=== PATIENT | female | born 1990 | race Caucasian/White ===

== ENCOUNTER 2016-11-25 02:32 | Emergency (ER) | payer MEDICAID ==
[~2016-11-25] VITALS: Ht 154.9 cm; Wt 61.2 kg
[~2016-11-25 02:32] MED LIST: CYMBALTA60 MG ORAL; DEPAKOTE250 MG PO; GABAPENTIN100 MG ORAL; PHENOBARBITAL30 MG ORAL; SEROQUEL200 MG ORAL
[2016-11-25] MEDS ORDERED: GABAPENTIN600 MG ORAL (02:44)
[2016-11-25] MEDS ORDERED: CATAPRES0.1 MG ORAL (02:44)
[2016-11-25] MEDS ORDERED: Norco 5mg/325mg tab ORAL ONE (03:30)
[2016-11-25] MEDS ORDERED: Lidocaine 1% MPF 10mg/ml 5ml ONE (03:40)
[2016-11-25] MEDS ORDERED: Cephalexin 500mg cap ORAL ONE (04:00)
--- NOTE | 2016-11-25 04:23 | Emergency Room Report ---
History of Present Illness General Chief Complaint: Pain Source: Patient Present Illness HPI Patient presents with complaints of right leg swelling Reports that she was recently at [facility] for approximately 10 days Soon after that at [facility] Patient reports having ultrasounds to rule out DVT has been on IV antibiotics Reports leaving [place] last hospital She had continued discomfort in her right leg She reports that she had history of rhabdo Otherwise denies any chest pain returns of breath Denies any back or flank pain Denies any fevers or chills denies any recent fall or trauma however she does report Fractures on the right foot recently as well Allergies: Coded Allergies: KETOROLAC (Verified Allergy, Unknown, 11/25/16) PHENYTOIN (Unverified Allergy, Unknown, 08/13/16) TRAMADOL (Verified Allergy, Unknown, 11/25/16) Patient History Past Medical History: see triage record Pertinent Family History: none Last Menstrual Period: a week ago Now: No Reviewed Nursing Documentation: PMH: Agreed, PSxH: Agreed Nursing Documentation-PMH Past Medical History: No History, Except For Hx Seizures: Yes Review of Systems All Other Systems: negative except mentioned in HPI Physical Exam Vital Signs Date Time Temp Pulse Resp B/P Pulse Ox O2 Delivery O2 Flow Rate FiO2 11/25/16 02:35 97.7 132 16 117/80 95 Room Air Sp02 EP Interpretation: reviewed, normal General Appearance: well appearing, no apparent distress Head: normocephalic, atraumatic Eyes: bilateral eye EOMI, bilateral eye PERRL ENT: hearing grossly normal, normal pharynx, TMs + canals normal, uvula midline Neck: full range of motion, supple, no meningismus, no bony tend Respiratory: lungs clear, normal breath sounds, no rhonchi, no respiratory distress, no retraction, no accessory muscle use Cardiovascular #1: normal peripheral pulses, regular rate, rhythm, no gallop, no JVD, no murmur Gastrointestinal: normal bowel sounds, non tender, soft, no mass, no organomegaly, non-distended, no guarding, no hernia, no pulsatile mass, no rebound Genitourinary: no CVA tenderness Musculoskeletal: swelling - There is obvious swelling and mild erythema the right foot and the lower leg, pulses are intact the leg itself is soft, no signs of any compartment syndrome Neurologic: oriented x3, responsive, wheel cleaner III-XII nml as tested, motor strength/ tone normal, sensory intact Psychiatric: mood/affect normal Skin: other - As noted above Medical Decision Making Diagnostic Impression: Primary Impression: Edema Additional Impression: Cellulitis ER Course Patient has had a fairly extensive outpatient workup including blood work and ultrasonography patient has also had a patient admission and care She reports leaving [place] from [place] recently At this time there is some chronic component to the patient's presentation however clinical exam does reveal swelling and mild erythema to the foot and lower leg as well Patient was initially given IM injection of antibiotics however she refused that and wanted oral medication Patient reports that she is going to a rehabilitation facility tomorrow and will have a primary physician at that facility Given her reports of recent workup I did not feel that repeating this was required in the emergency room Last Vital Signs Date Time Temp Pulse Resp B/P Pulse Ox O2 Delivery O2 Flow Rate FiO2 11/25/16 02:35 97.7 132 16 117/80 95 Room Air Status: improved Disposition: HOME, SELF-CARE Condition: Improved Scripts Acetaminophen (Tylenol) 325 Mg Tablet 650 MG ORAL Q8HR Y for Prn Pain/Headache/Temp > 101, #20 TAB 0 Refills Prov: GREGOR KURTZ D.O. 11/25/16 Cephalexin* (KEFLEX*) 500 Mg Capsule 500 MG ORAL Q6H, #28 CAP 0 Refills Prov: GREGOR KURTZ D.O. 11/25/16 Referrals: Cezar JOHN,REFERRING (PCP) Additional Instructions: Patient is provided with the discharge instructions notified to follow up with primary doctor in the next 2-3 days otherwise return to the er with any worsening symptoms. GREGOR KURTZ D.O. Nov 25, 2016 04:23
[2016-11-25] MEDS ORDERED: TYLENOL325 MG ORAL (04:59)
[2016-11-25] MEDS ORDERED: KEFLEX500 MG ORAL (04:59)
[2016-11-25 06:30] VITALS: BP 120/82
[2016-11-25 06:31] VITALS: BP 117/80
== END 2016-11-25 06:34 | disposition home or self-care (01) ==
LOC: EMR 03:23
DX: R60.9 Edema, unspecified (principal); L03.115 Cellulitis of right lower limb; Z88.6 Allergy status to analgesic agent; Z88.8 Allergy status to other drugs, medicaments and biological substances
CPT/HCPCS: 99283; J0696

== ENCOUNTER 2016-11-25 15:19 | Emergency (ER) | payer MEDICAID ==
[~2016-11-25] VITALS: Ht 162.6 cm; Wt 52.2 kg
[~2016-11-25 15:19] MED LIST changes: +CATAPRES0.1 MG ORAL; +GABAPENTIN600 MG ORAL; +KEFLEX500 MG ORAL; +TYLENOL325 MG ORAL
[2016-11-25 15:50] VITALS: BP 123/82
[2016-11-25] MEDS ORDERED: Norco 5mg/325mg tab ORAL ONE (16:45)
[2016-11-25 16:59] LABS: BASOPHILS % (AUTO) 1.4 % (0.0-2.0); EOSINOPHILS % (AUTO) 2.3 % (0.0-3.0); LYMPHOCYTES % (AUTO) 46.1 % (20.0-45.0); MEAN CORPUSCULAR HEMOGLOBIN 28.1 PG (27.0-31.0); MEAN CORPUSCULAR HGB CONC 31.3 G/DL (32.0-36.0); MEAN CORPUSCULAR VOLUME 90 FL (80-99); MEAN PLATELET VOLUME 4.7 FL (6.5-10.1); MONOCYTES % (AUTO) 9.3 % (1.0-10.0); NEUTROPHILS % (AUTO) 40.9 % (45.0-75.0); PLATELET COUNT 408 K/UL (150-450); RED BLOOD COUNT 3.82 M/UL (4.20-5.40); RED CELL DISTRIBUTION WIDTH 14.1 % (11.6-14.8); WHITE BLOOD COUNT 7.3 K/UL (4.8-10.8)
[2016-11-25 17:10] LABS: INR 1.1 (0.9-1.1); PROTHROMBIN TIME 10.7 SEC (9.30-11.50)
[2016-11-25 17:17] LABS: ALANINE AMINOTRANSFERASE 15 U/L (3-33); ALBUMIN/GLOBULIN RATIO 1.3 (1.0-2.7); ANION GAP 14 (5-15); ASPARTATE AMINO TRANSFERASE 23 U/L (5-40); CARBON DIOXIDE 24 mEQ/L (20-30); CHLORIDE 100 mEQ/L (98-107); CREATININE 0.8 mg/dL (0.5-0.9); GLOMERULAR FILTRATION RATE > 60 mL/min (>60); HEMOLYSIS 3; POTASSIUM 4.3 mEQ/L (3.4-4.9); SODIUM 138 mEQ/L (135-145)
[2016-11-25 18:33] VITALS: BP 121/81
--- NOTE | 2016-11-26 11:37 | Diagnostic Imaging Report ---
Indication: Pain 3 views of the right knee were obtained. Findings: No acute fracture, malalignment, or joint effusion are identified. Joint space is relatively well-maintained. Bone mineralization is within normal limits for age. Impression: Negative exam
--- NOTE | 2016-11-27 14:08 | Emergency Room Report ---
History of Present Illness General Chief Complaint: Pain Source: Patient Present Illness HPI The pt is a 26 yo F who states she has had recent admission for rhabdomyolysis presenting for continuing R leg pain. The pt was seen in this ED earlier today and IL'ed with prescription for keflex and stated that she would FU with her PMD. The pt has been seen at [facility] and [facility] after being diagnosed and treated for rhabdomyolysis and states she has had negative workups which included duplex ultrasound. The pt states she was on IV abx and left AMA at the last facility because she experienced no improvement of pain or symptoms. The patient that she is experiencing a 10 out of 10 dull pain which begins At the knee and radiates distally to the foot. The patient denies any known trauma to the leg. The patient denies numbness or tingling of the extremity. Pain is worse with movement. No relieving factors. Allergies: Coded Allergies: KETOROLAC (Verified Allergy, Unknown, 11/25/16) PHENYTOIN (Unverified Allergy, Unknown, 08/13/16) TRAMADOL (Verified Allergy, Unknown, 11/25/16) Patient History Past Medical History: see triage record Pertinent Family History: none Reviewed Nursing Documentation: PMH: Agreed, PSxH: Agreed Nursing Documentation-PMH Hx Seizures: Yes Review of Systems All Other Systems: negative except mentioned in HPI Physical Exam Vital Signs Date Time Temp Pulse Resp B/P Pulse Ox O2 Delivery O2 Flow Rate FiO2 11/25/16 15:34 97.9 79 20 123/82 100 Room Air Sp02 EP Interpretation: reviewed, normal General Appearance: no apparent distress, alert, GCS 15, non-toxic Head: normocephalic, atraumatic Eyes: bilateral eye PERRL, bilateral eye normal inspection ENT: hearing grossly normal, normal pharynx, no angioedema, normal voice Musculoskeletal: back normal, gait/station normal, normal range of motion, Issac's Sign negative, swelling - mild edema to R knee, leg, and foot, tender - TTP over entire knee Neurologic: alert, oriented x3, responsive, motor strength/tone normal, sensory intact, speech normal Psychiatric: judgement/insight normal, memory normal, mood/affect normal, no suicidal/homicidal ideation Skin: warm/dry, normal turgor, other - mild ecchymosis noted over anterior R knee Medical Decision Making PA Attestation Dr. Camacho is my supervising physician. Patient management was discussed with my supervising physician Diagnostic Impression: Primary Impression: Leg edema, right ER Course The pt is a 26 yo F who states she has had recent admission for rhabdomyolysis presenting for continuing R leg pain. Ddx considered include but not limited to sprain/strain, rhabdomyolysis, fracture, contusion PE: vitals WNL. Afebrile. NAD RRR. Lungs CTA bilat. R le+ edema from knee to foot. No erythema. Ecchymosis over anterior knee. No obvious deformity. Sensation intact to light touch. Warm and dry. Normal gait CBC, CMP, PT, PTT unremarkable. CK WNL. Lactate elevated R knee xray unremarkable. The patient was given one [place] for pain with good relief. The patient is asking for a room so she can stay overnight. Lab work and physical exam is unremarkable for rhabdomyolysis. The patient will continue to take the prescribed medications and will followup with primary care physician. ER precautions are given Laboratory Tests Test 11/25/16 16:45 White Blood Count 7.3 K/UL (4.8-10.8) Red Blood Count 3.82 M/UL (4.20-5.40) L Hemoglobin 10.7 G/DL (12.0-16.0) L Hematocrit 34.2 % (37.0-47.0) L Mean Corpuscular Volume 90 FL (80-99) Mean Corpuscular Hemoglobin 28.1 PG (27.0-31.0) Mean Corpuscular Hemoglobin Concent 31.3 G/DL (32.0-36.0) L Red Cell Distribution Width 14.1 % (11.6-14.8) Platelet Count 408 K/UL (150-450) Mean Platelet Volume 4.7 FL (6.5-10.1) L Neutrophils (%) (Auto) 40.9 % (45.0-75.0) L Lymphocytes (%) (Auto) 46.1 % (20.0-45.0) H Monocytes (%) (Auto) 9.3 % (1.0-10.0) Eosinophils (%) (Auto) 2.3 % (0.0-3.0) Basophils (%) (Auto) 1.4 % (0.0-2.0) Prothrombin Time 10.7 SEC (9.30-11.50) Prothrombin Time INR 1.1 (0.9-1.1) PTT 32 SEC (23-33) Sodium Level 138 mEQ/L (135-145) Potassium Level 4.3 mEQ/L (3.4-4.9) Chloride Level 100 mEQ/L (98-107) Carbon Dioxide Level 24 mEQ/L (20-30) Anion Gap 14 (5-15) Blood Urea Nitrogen 11 mg/dL (7-23) Creatinine 0.8 mg/dL (0.5-0.9) Estimate Glomerular Filtration Rate > 60 mL/min (>60) Glucose Level 112 mg/dL (74-106) H Calcium Level 9.0 mg/dL (8.6-10.2) Total Bilirubin 0.2 mg/dL (0.0-1.2) Aspartate Amino Transferase (AST) 23 U/L (5-40) Alanine Aminotransferase (ALT) 15 U/L (3-33) Alkaline Phosphatase 83 U/L (35-104) Lactate Dehydrogenase 255 U/L (135-230) H Total Creatine Kinase 112 U/L (26-140) Total Protein 7.0 g/dL (6.6-8.7) Albumin 4.0 g/dL (3.5-5.2) Globulin 3.0 g/dL Albumin/Globulin Ratio 1.3 (1.0-2.7) Lab Results Impression CBC, CMP, PT, PTT unremarkable. CK WNL. Lactate elevated Other X-Ray Diagnostic Results Other X-Ray Diagnostic Results : X-Ray Ordered: R knee xray Date: Nov 25, 2016 EP Interpretation: Yes Findings: no fractures, no dislocation, no soft tissue swelling Number of Views: 3 PA Scribe Text I am acting as scribe for my supervising physician. My supervising physician's interpretation of the R knee xrays are there are no fractures, dislocations or soft tissue swelling. Last Vital Signs Date Time Temp Pulse Resp B/P Pulse Ox O2 Delivery O2 Flow Rate FiO2 11/25/16 18:33 97.8 81 20 121/81 100 Room Air Status: improved Disposition: HOME, SELF-CARE Condition: Improved Patient Instructions: Peripheral Edema Additional Instructions: I discussed my findings with the patient. All questions and concerns have been answered. Treatment and medication compliance have been addressed. I advised the patient that they need to follow up with PMD in 3-5 days. Return to ED if symptoms worsen, new symptoms arise, or if needed for any reason. Patient verbalized understanding of discharge instructions. SARAHY ALBA Nov 27, 2016 14:08
== END 2016-11-25 18:34 | disposition home or self-care (01) ==
LOC: EMR 16:47
DX: R60.0 Localized edema (principal); M62.82 Rhabdomyolysis; Z88.8 Allergy status to other drugs, medicaments and biological substances; Z88.6 Allergy status to analgesic agent
CPT/HCPCS: 36415; 80053; 82550; 83615; 85025; 85610; 85730; 99283

== ENCOUNTER 2018-01-13 21:40 | Inpatient (IN) | payer BC, MEDICAID ==
[~2018-01-13] VITALS: Ht 157.5 cm; Wt 66.7 kg
[2018-01-14] MEDS ORDERED: LORazepam 1mg tab ORAL PRN (02:45)
[2018-01-14] MEDS ORDERED: Norco 5mg/325mg tab ORAL PRN (02:45)
[2018-01-14 04:00] VITALS: BP 122/63
[2018-01-14] MEDS ORDERED: Vancomycin 1250mg/D5W 250ml IVPB ONE (05:00)
[2018-01-14 08:00] VITALS: BP 122/76
[2018-01-14] MEDS ORDERED: cefTRIAXone 1 GM in D5W 55 ML IVPB SCH (09:00)
[2018-01-14 09:35] LABS: HEMATOCRIT 43.2 % (37.0-47.0); HEMOGLOBIN 14.9 G/DL (12.0-16.0); MEAN CORPUSCULAR VOLUME 85 FL (80-99); PLATELET COUNT 195 K/UL (150-450); RED BLOOD COUNT 5.06 M/UL (4.20-5.40); WHITE BLOOD COUNT 5.8 K/UL (4.8-10.8)
[2018-01-14 09:48] LABS: ANION GAP 8 mmol/L (5-15); BLOOD UREA NITROGEN 3 mg/dL (7-18); CALCIUM 8.2 MG/DL (8.5-10.1); CARBON DIOXIDE 23 MMOL/L (21-32); CHLORIDE 106 MMOL/L (98-107); CREATININE 0.7 MG/DL (0.55-1.30); PHOSPHORUS 3.8 MG/DL (2.5-4.9); POTASSIUM 3.6 MMOL/L (3.5-5.1); SODIUM 137 MMOL/L (136-145)
[2018-01-14] MEDS: cefTRIAXone 1 GM in NS 55 ML IVPB SCH (10:34)
[2018-01-14] MEDS: D5 1/2NS w/KCl 20mEq 1,000 ML IV SCH ×2 (10:35→14:50)
[2018-01-14 12:00] VITALS: BP 119/71
--- NOTE | 2018-01-14 12:23 | Consultation ---
History of Present Illness General Date patient seen: Jan 14, 2018 Present Illness HPI 27 year old female with hx of IVDA, on Morphine was taken to [facility] with cc of fever and seizures. , She was diagnosed to have Urosepsis and transferred to telemetry for further management. Allergies: Coded Allergies: KETOROLAC (Verified Allergy, Unknown, 11/25/16) PHENYTOIN (Unverified Allergy, Unknown, 08/13/16) TRAMADOL (Verified Allergy, Unknown, 11/25/16) Medication History Scheduled Cephalexin* (Keflex*), 500 MG ORAL Q6H Clonidine Hcl* (Catapres*), 0.1 MG ORAL EVERY 8 HOURS, (Reported) Divalproex Sodium* (Depakote*), Unknown Dose PO Q12HR, (Reported) Divalproex Sodium* (Depakote*), 250 MG PO Q12HR Duloxetine Hcl* (Cymbalta*), 60 MG ORAL DAILY Gabapentin* (Gabapentin*), 100 MG ORAL THREE TIMES A DAY, (Reported) Gabapentin* (Gabapentin*), Unknown Dose ORAL THREE TIMES A DAY, (Reported) Gabapentin* (Gabapentin*), 100 MG ORAL THREE TIMES A DAY Gabapentin* (Gabapentin*), 600 MG ORAL QID, (Reported) Phenobarbital* (Phenobarbital*), 30 MG ORAL BID Quetiapine Fumarate* (Seroquel*), 200 MG ORAL DAILY Scheduled PRN Acetaminophen (Tylenol), 650 MG ORAL Q8HR PRN for Prn Pain/Headache/Temp > 101 Patient History Healthcare decision maker Resuscitation status Full Code Advanced Directive on File Past Medical/Surgical History Past Medical/Surgical History: (1) IVDU (intravenous drug user) Review of Systems Constitutional: Reports: sweats, malaise, weakness All Other Systems: negative except mentioned in HPI Physical Exam General Appearance: WD/WN, mild distress Lines, tubes and drains: peripheral HEENT: normocephalic, atraumatic Neck: non-tender, normal alignment, supple Respiratory/Chest: chest wall non-tender, lungs clear, normal breath sounds Breasts: no masses Cardiovascular/Chest: normal peripheral pulses, normal rate Abdomen: normal bowel sounds, non tender Genitourinary/Rectal: normal genital exam, normal rectal exam Extremities: normal range of motion, non-tender Skin Exam: normal pigmentation 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, no motor/sensory deficits Last 24 Hour Vital Signs Date Time Temp Pulse Resp B/P (MAP) Pulse Ox O2 Delivery O2 Flow Rate FiO2 01/14/18 08:00 97.9 109 18 122/76 99 Nasal Cannula 2.0 97.9 01/14/18 06:06 101.7 01/14/18 05:07 101.7 01/14/18 04:00 122 01/14/18 04:00 101.7 125 20 122/63 98 Nasal Cannula 2.0 101.7 Intake and Output 01/13/18 01/14/18 19:00 07:00 Output Total 0 ml Balance 0 ml Output Urine Total 0 ml Laboratory Tests Test 01/14/18 09:10 White Blood Count 5.8 K/UL (4.8-10.8) Red Blood Count 5.06 M/UL (4.20-5.40) Hemoglobin 14.9 G/DL (12.0-16.0) Hematocrit 43.2 % (37.0-47.0) Mean Corpuscular Volume 85 FL (80-99) Mean Corpuscular Hemoglobin 29.6 PG (27.0-31.0) Mean Corpuscular Hemoglobin Concent 34.6 G/DL (32.0-36.0) Red Cell Distribution Width 12.0 % (11.6-14.8) Platelet Count 195 K/UL (150-450) Mean Platelet Volume 6.2 FL (6.5-10.1) L Neutrophils (%) (Auto) % (45.0-75.0) Lymphocytes (%) (Auto) % (20.0-45.0) Monocytes (%) (Auto) % (1.0-10.0) Eosinophils (%) (Auto) % (0.0-3.0) Basophils (%) (Auto) % (0.0-2.0) Differential Total Cells Counted 100 Neutrophils % (Manual) 31 % (45-75) L Lymphocytes % (Manual) 66 % (20-45) H Monocytes % (Manual) 3 % (1-10) Eosinophils % (Manual) 0 % (0-3) Basophils % (Manual) 0 % (0-2) Band Neutrophils 0 % (0-8) Platelet Estimate Adequate Platelet Morphology Normal Red Blood Cell Morphology Normal Sodium Level 137 MMOL/L (136-145) Potassium Level 3.6 MMOL/L (3.5-5.1) Chloride Level 106 MMOL/L (98-107) Carbon Dioxide Level 23 MMOL/L (21-32) Anion Gap 8 mmol/L (5-15) Blood Urea Nitrogen 3 mg/dL (7-18) L Creatinine 0.7 MG/DL (0.55-1.30) Estimat Glomerular Filtration Rate > 60 mL/min (>60) Glucose Level 107 MG/DL (74-106) H Calcium Level 8.2 MG/DL (8.5-10.1) L Phosphorus Level 3.8 MG/DL (2.5-4.9) Magnesium Level 1.8 MG/DL (1.8-2.4) Height (Feet): 5 Height (Inches): 2.00 Weight (Pounds): 147 Medications Current Medications Medications (Trade) Dose Ordered Sig/Gustavo Route PRN Reason Start Time Stop Time Status Last Admin Dose Admin Acetaminophen (Tylenol) 650 mg Q6H PRN ORAL Mild Pain/Temp > 100.5 01/14/18 02:45 02/13/18 02:44 01/14/18 05:07 Acetaminophen/ Hydrocodone Bitart ([place] 5/325) 1 tab Q6H PRN ORAL For Pain 01/14/18 02:45 01/21/18 02:44 Ceftriaxone Sodium 1 gm/ Sodium Chloride 55 ml @ 110 mls/hr Q24H IVPB 01/14/18 09:00 01/21/18 08:59 01/14/18 10:34 Dextrose/ Electrolytes 1,000 ml @ 100 mls/hr Q10H IV 01/14/18 05:00 02/13/18 04:59 01/14/18 10:35 Divalproex Sodium (Depakote) 250 mg EVERY 12 HOURS ORAL 01/14/18 09:00 02/13/18 08:59 01/14/18 10:37 Lorazepam (Ativan) 1 mg Q4H PRN ORAL For Anxiety 01/14/18 02:45 01/21/18 02:44 Ondansetron HCl (Zofran) 4 mg Q6H PRN IVP Nausea & Vomiting 01/14/18 02:45 02/13/18 02:44 Vancomycin HCl (Vanco rx to dose) 1 ea DAILY MISC 01/14/18 09:00 02/13/18 08:59 Assessment/Plan Problem List: (1) Sepsis ICD Codes: A41.9 - Sepsis, unspecified organism SNOMED: 59301582 (2) IVDU (intravenous drug user) ICD Codes: F19.90 - Other psychoactive substance use, unspecified, uncomplicated SNOMED: 337525707 (3) Fever ICD Codes: R50.9 - Fever, unspecified SNOMED: 522001190 (4) Seizure disorder ICD Codes: G40.909 - Epilepsy, unspecified, not intractable, without status epilepticus SNOMED: 824745177 Assessment/Plan rudd culture IV abx ID evaluation CURTIS [place]OUNTAIN Jan 14, 2018 12:23
--- NOTE | 2018-01-14 13:15 | Consultation ---
Consult Note Consult Note ID DIC # [id number] GARRY GOTTI M.D. Jan 14, 2018 13:15
--- NOTE | 2018-01-14 13:22 | Neurology Progress Note ---
Objective Physical Exam Last Vital Signs Date Time Temp Pulse Resp B/P (MAP) Pulse Ox O2 Delivery O2 Flow Rate FiO2 01/14/18 12:00 97.7 113 18 119/71 98 Room Air 97.7 01/14/18 08:00 Laboratory Tests Test 01/14/18 09:10 White Blood Count 5.8 K/UL (4.8-10.8) Red Blood Count 5.06 M/UL (4.20-5.40) Hemoglobin 14.9 G/DL (12.0-16.0) Hematocrit 43.2 % (37.0-47.0) Mean Corpuscular Volume 85 FL (80-99) Mean Corpuscular Hemoglobin 29.6 PG (27.0-31.0) Mean Corpuscular Hemoglobin Concent 34.6 G/DL (32.0-36.0) Red Cell Distribution Width 12.0 % (11.6-14.8) Platelet Count 195 K/UL (150-450) Mean Platelet Volume 6.2 FL (6.5-10.1) L Neutrophils (%) (Auto) % (45.0-75.0) Lymphocytes (%) (Auto) % (20.0-45.0) Monocytes (%) (Auto) % (1.0-10.0) Eosinophils (%) (Auto) % (0.0-3.0) Basophils (%) (Auto) % (0.0-2.0) Differential Total Cells Counted 100 Neutrophils % (Manual) 31 % (45-75) L Lymphocytes % (Manual) 66 % (20-45) H Monocytes % (Manual) 3 % (1-10) Eosinophils % (Manual) 0 % (0-3) Basophils % (Manual) 0 % (0-2) Band Neutrophils 0 % (0-8) Platelet Estimate Adequate Platelet Morphology Normal Red Blood Cell Morphology Normal Sodium Level 137 MMOL/L (136-145) Potassium Level 3.6 MMOL/L (3.5-5.1) Chloride Level 106 MMOL/L (98-107) Carbon Dioxide Level 23 MMOL/L (21-32) Anion Gap 8 mmol/L (5-15) Blood Urea Nitrogen 3 mg/dL (7-18) L Creatinine 0.7 MG/DL (0.55-1.30) Estimat Glomerular Filtration Rate > 60 mL/min (>60) Glucose Level 107 MG/DL (74-106) H Calcium Level 8.2 MG/DL (8.5-10.1) L Phosphorus Level 3.8 MG/DL (2.5-4.9) Magnesium Level 1.8 MG/DL (1.8-2.4) Impression/Recommendations Problems: (1) Epileptic seizure, generalized (2) Heroin abuse (3) Non-compliance (4) Depressed affect (5) Neuropathic pain Status: unchanged Recommendations #[id number] ROSALINA RAYGOZA Jan 14, 2018 13:21
--- NOTE | 2018-01-14 13:41 | Diagnostic Imaging Report ---
Indication: Dyspnea Technique: One view of the chest Comparison: 05/26/2016 Findings: Lungs and pleural spaces are clear. Heart size is normal. No significant change Impression: No acute process
[2018-01-14 14:15] LABS: AMMONIA 60 umol/L (11-32)
[2018-01-14 14:20] LABS: ALANINE AMINOTRANSFERASE 63 U/L (12-78); ALBUMIN 2.9 G/DL (3.4-5.0); ALKALINE PHOSPHATASE 99 U/L (46-116); ASPARTATE AMINO TRANSFERASE 52 U/L (15-37); BILIRUBIN,DIRECT 0.1 MG/DL (0.0-0.3); BILIRUBIN,TOTAL 0.3 MG/DL (0.2-1.0); CHOLESTEROL 110 MG/DL (< 200); HDL CHOLESTEROL 30 MG/DL (40-60); TRIGLYCERIDES 54 MG/DL (30-150)
[2018-01-14] MEDS: Thiamine 100mg tab ORAL SCH (14:47)
[2018-01-14] MEDS: Azithromycin 500 MG in D5W 275 ML IV SCH (14:50)
[2018-01-14 16:00] VITALS: BP 122/77
--- NOTE | 2018-01-14 17:06 | History & Physical ---
History and Physical History & Physicial Dictated for Int Med-Dr Garcia no. [id number]. MANDI NEW Jan 14, 2018 17:06
[2018-01-14 20:00] VITALS: BP 115/73
[2018-01-14] MEDS ORDERED: LORazepam Inj 2mg/ml 1ml IV PRN (20:45)
--- NOTE | 2018-01-14 21:15 | Consultation ---
DATE OF CONSULTATION: 01/14/2018 CONSULTING PHYSICIAN: Radha Cano M.D. HISTORY OF PRESENT ILLNESS: The patient is a 27-year-old female with history of substance use disorder including IV opioid pain medications, who was admitted here from [facility] with chief complaint of fever and seizure. The patient has been diagnosed with urosepsis. During evaluation, she was asleep, difficult to awake, uncooperative, and the patient was minimally verbal. The patient has not been presenting with any symptoms consistent with psychotic manic episodes. PAST PSYCHIATRIC HISTORY: She has a history of anxiety and depression. PAST MEDICAL HISTORY: Significant for epileptic seizure, fever, and sepsis. ALLERGIES: Ketoralac, phenytoin, and tramadol. MENTAL STATUS EXAMINATION: The patient is alert and oriented times self, place, and situation. Mood is depressed. Affect is constricted, congruent with mood. Thought process is concrete. Thought content, no suicidal or homicidal ideations. ASSESSMENT: [place] I Opioid pain medications, history of depression, and anxiety. [place] II Deferred. [place] III Urosepsis. [place] IV Low. [place] V Global assessment of functioning is 20. PLAN: The patient will be started on Depakote 500 mg b.i.d., which is going to cover her seizure as well as her mood disorder. In fact, she was started on 250 mg twice a day. I will increase it to 500 mg b.i.d. Radha Cano M.D. DR: Mahesh JOB#: [id number] CC:
[2018-01-14] MEDS ORDERED: Depakote 500mg tab ORAL ONE (21:30)
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
--- NOTE | 2018-01-14 22:00 | Consultation ---
DATE OF CONSULTATION: 01/14/2018 INFECTIOUS DISEASES CONSULTATION CONSULTING PHYSICIAN: James Bell M.D REFERRING PHYSICIAN: Barrington Calles M.D. REASON FOR CONSULTATION: Evaluation of the patient for pneumonia, UTI, and antibiotic management. HISTORY OF PRESENT ILLNESS: The patient is a 27-year-old female, who was initially admitted to [facility] for fever and apparently has developed an episode of seizure. The patient was transferred here for further care. The patient overall is a poor historian. She has been complaining of having cough with sputum production. Denied of having any urinary symptoms at the time of my visit. The patient admits to abusing heroin and intravenous drug administration. The patient has history of hepatitis C that has not been treated. Infectious Disease consultation has been requested for further evaluation of the patient and antibiotic management. PAST MEDICAL HISTORY: Hepatitis C, untreated and history of IV drug abuse (heroin). ALLERGIES: No allergies to antibiotics. FAMILY HISTORY: Not contributing. REVIEW OF SYSTEMS: GENERAL: Poor historian. HEENT: The patient is having headaches. PULMONARY: As mentioned above. CARDIOVASCULAR: No chest pain. GASTROINTESTINAL/ABDOMEN: The patient had nausea and vomiting yesterday. GENITOURINARY: Unremarkable. PHYSICAL EXAMINATION: VITAL SIGNS: Temperature 97 degrees, blood pressure 119/71, pulse 86, respiratory rate 18, and T-max 101.1 degrees. HEENT: No pale conjunctivae. No icterus. NECK: No lymphadenopathy. CHEST: Coarse breathing sounds. HEART: S1 and S2. ABDOMEN: Soft and nontender. EXTREMITIES: No cyanosis at this time. NEUROLOGIC: Awake and alert. LABORATORY AND DIAGNOSTIC DATA: White blood cells 5.8, hemoglobin 14.9, and platelets 195,000. UA unremarkable. BUN 3 and creatinine 0.7. Liver function tests are unremarkable. ASSESSMENT: The patient is a 27-year-old female with: 1. Fever. 2. Rule out influenza. 3. ? urinary tract infection. 4. Pneumonia/bronchitis. 5. Rule out bacteremia. PLAN: 1. We will continue the patient on Rocephin. We will add Zithromax for atypical coverage, discontinue vancomycin. 2. Monitor CBC. 3. Monitor BMP. 4. Monitor cultures (blood, urine). 5. Influenza screening test. 6. Monitor chest x-ray. 7. Based on the patient's clinical course and labs, we will do further recommendations. Thank you, Dr. Calles for allowing me to participate in the care of this patient. I will follow the patient with you during this hospitalization. James Bell M.D. DR: Marleny JOB#: [id number] CC:
[2018-01-14] MEDS: Depakote 500mg tab ORAL SCH (22:02)
[2018-01-14] MEDS ORDERED: LORazepam Inj 2mg/ml 1ml IV ONE (23:15)
[2018-01-15] VITALS: BP 116/87
--- NOTE | 2018-01-15 00:30 | History and Physical Report ---
DATE OF ADMISSION: 01/14/2018 CHIEF COMPLAINT: The patient is a 27-year-old white female, presents with complaint of fever, nausea, vomiting, cough and seizure. HISTORY OF PRESENT ILLNESS: The patient has a history of seizure disorder. The patient initially presented to [facility] emergency room on 01/13/2018. The patient presented after having a seizure. The patient has a history of IV heroin use. The patient has been running fevers of up to 102 degrees Fahrenheit. Upon arrival at [facility], the patient had a fever of 102.8 degrees Fahrenheit. The patient is transferred to [facility] for insurance purposes. The patient is admitted for fever to rule out sepsis and intractable seizures. PAST MEDICAL HISTORY: Significant for Seizure disorder. PAST SURGICAL HISTORY: Significant for laparoscopic cholecystectomy. CURRENT MEDICATIONS: 1. Depakote 250 mg p.o. twice daily. 2. Cymbalta 60 mg p.o. daily. 3. Gabapentin 100 mg p.o. three times daily. 4. Phenobarbital 30 mg p.o. twice daily. 5. Seroquel 200 mg p.o. daily. ALLERGIES: 1. Ketorolac. 2. Dilantin. 3. Tramadol. SOCIAL HISTORY: The patient is single. The patient is unemployed. The patient admits to intravenous heroin use of 1 grams daily. 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 The patient admits to tobacco use of one-half pack per day. The patient denies alcohol use. REVIEW OF SYSTEMS: CONSTITUTIONAL: The patient denies weight loss or gain. The patient complains of fevers and chills as above. HEENT: The patient denies ear or throat pain. The patient denies headache. CARDIOVASCULAR: The patient denies palpitations or chest pain. CHEST: The patient denies wheeze or shortness of breath. The patient complains of cough. ABDOMEN: The patient complains of nausea with vomiting as above. The patient denies diarrhea or constipation. GENITOURINARY: The patient denies dysuria or increased frequency of urination. NEUROMUSCULAR: The patient has a history of seizure disorder. The patient denies generalized weakness. PHYSICAL EXAMINATION: VITAL SIGNS: From [place] temperature 102.8 degrees Fahrenheit, respirations 18, blood pressure 153/87, and pulse 135. GENERAL: The patient is a well-developed and well-nourished white female, no apparent distress. HEENT: Eyes, pupils are equal and responsive to light and accommodation. Extraocular movements are intact. NECK: Supple without lymphadenopathy. CHEST: Lungs are clear to auscultation bilaterally without wheezes or rales. CARDIOVASCULAR: Regular rhythm and rate. S1 and S2 are normal without murmurs, rubs, or gallops. ABDOMEN: Soft, nontender, and nondistended. Positive bowel sounds. No evidence of hepatosplenomegaly. Currently, no rebound or guarding noted. EXTREMITIES: Negative for clubbing, cyanosis, or edema. RECTAL/GENITAL: Refused. NEUROLOGIC: Cranial nerves II through XII are grossly intact without focal deficits. Motor strength is 5/5 bilaterally. Deep tendon reflexes are 2+ plantar. LABORATORY AND DIAGNOSTIC DATA: Urinalysis, 2+ ketones and positive leukocyte esterase. WBC 5.6, hemoglobin 13.2, hematocrit 37.9 and platelets 183,000. Sodium 135, potassium 3.6, chloride 100, CO2 25, BUN 9, creatinine 0.76 and glucose 97. AST elevated at 38. Chest x-ray was reported as no acute disease. ASSESSMENT: This is a 27-year-old white female 1. Fever. 2. Nausea with vomiting. 3. Cough. 4. Intractable seizures. 5. Opiate dependence/withdrawal. TREATMENT: 1. Fever. An Infectious Disease consultation has been obtained with Dr. Bell. The patient has been started empirically on azithromycin and ceftriaxone. We will follow recommendations of Infectious Disease. Fever is concerning for sepsis given history of intravenous drug use. 2. Seizure disorder. The patient will be continued on Depakote and phenobarbital as above. A Neurology consultation has been obtained with Dr. Allen. 3. Opiate dependence/withdrawal. A Psychiatric consultation has been obtained with Dr. Cano. London Lowe M.D. DR: PRADEEP JOB#: [id number] CC:
[2018-01-15] MEDS: D5 1/2NS w/KCl 20mEq 1,000 ML IV SCH ×4 (01:34→21:00)
[2018-01-15 04:00] VITALS: BP 116/78
[2018-01-15 08:00] VITALS: BP 110/72
[2018-01-15 08:10] LABS: HEMATOCRIT 39.5 % (37.0-47.0); HEMOGLOBIN 13.9 G/DL (12.0-16.0); MEAN CORPUSCULAR VOLUME 85 FL (80-99); PLATELET COUNT 224 K/UL (150-450); RED BLOOD COUNT 4.64 M/UL (4.20-5.40); RED CELL DISTRIBUTION WIDTH 12.6 % (11.6-14.8); WHITE BLOOD COUNT 8.1 K/UL (4.8-10.8)
[2018-01-15 08:25] LABS: ALANINE AMINOTRANSFERASE 53 U/L (12-78); ALBUMIN 2.8 G/DL (3.4-5.0); ALBUMIN/GLOBULIN RATIO 0.8 (1.0-2.7); ALKALINE PHOSPHATASE 95 U/L (46-116); ANION GAP 10 mmol/L (5-15); ASPARTATE AMINO TRANSFERASE 32 U/L (15-37); BILIRUBIN,TOTAL 0.2 MG/DL (0.2-1.0); BLOOD UREA NITROGEN 2 mg/dL (7-18); CALCIUM 8.1 MG/DL (8.5-10.1); CARBON DIOXIDE 23 MMOL/L (21-32); CHLORIDE 108 MMOL/L (98-107); CREATININE 0.7 MG/DL (0.55-1.30); PHOSPHORUS 3.2 MG/DL (2.5-4.9); POTASSIUM 3.5 MMOL/L (3.5-5.1); SODIUM 141 MMOL/L (136-145)
[2018-01-15] MEDS: Thiamine 100mg tab ORAL SCH (08:57)
[2018-01-15] MEDS: cefTRIAXone 1 GM in NS 55 ML IVPB SCH (08:57)
[2018-01-15] MEDS: Depakote 500mg tab ORAL SCH ×2 (08:58→22:34)
--- NOTE | 2018-01-15 10:33 | Diagnostic Imaging Report ---
Indication: Seizure Technique: Contiguous 5 mm thick transaxial imaging of the head obtained in a Siemens Sensation [address] scanner. Soft tissue and bone windows generated. Automatic Exposure Control was utilized. Total Dose length Product (DLP): 1393.[address] Dose Index Volume (CTDIvol): 70.38 mGy Comparison: 08/13/2016 Findings: The size and configuration of the cortical sulci, basal cisterns, and ventricles are within normal limits for age. There is no mass effect, midline shift, or edema identified. Small cystic focus again demonstrated in the left basal ganglia unchanged from the last examination. This may be a prominent perivascular space vs. an old lacunar infarct. There is no evidence of acute hemorrhage or abnormal intra-axial or extra-axial fluid collections. The bones and soft tissues are unremarkable. There is a left posterior parietal craniotomy noted. Impression: No mass effect, edema or acute bleed. Status post left craniotomy The CT scanner at [facility] is accredited by the [employer] and the scans are performed using dose optimization techniques as appropriate to a performed exam including Automatic Exposure control.
--- NOTE | 2018-01-15 11:44 | Neurology Progress Note ---
Interim History Interim History ROS Limited/Unobtainable: No Complaints: aches pains in my bones, sleepy Events: x2 sz last nite Objective Physical Exam Last Vital Signs Date Time Temp Pulse Resp B/P (MAP) Pulse Ox O2 Delivery O2 Flow Rate FiO2 01/15/18 08:00 97.5 114 20 110/72 97 Room Air 97.5 01/14/18 08:00 Laboratory Tests Test 01/14/18 13:50 01/15/18 07:40 Total Bilirubin 0.3 MG/DL (0.2-1.0) 0.2 MG/DL (0.2-1.0) Direct Bilirubin 0.1 MG/DL (0.0-0.3) Aspartate Amino Transf (AST/SGOT) 52 U/L (15-37) H 32 U/L (15-37) Alanine Aminotransferase (ALT/SGPT) 63 U/L (12-78) 53 U/L (12-78) Alkaline Phosphatase 99 U/L (46-116) 95 U/L (46-116) Ammonia 60 umol/L (11-32) H Total Protein 6.4 G/DL (6.4-8.2) 6.4 G/DL (6.4-8.2) Albumin 2.9 G/DL (3.4-5.0) L 2.8 G/DL (3.4-5.0) L Triglycerides Level 54 MG/DL (30-150) Cholesterol Level 110 MG/DL (< 200) LDL Cholesterol 68 mg/dL (<100) HDL Cholesterol 30 MG/DL (40-60) L Cholesterol/HDL Ratio 3.7 (3.3-4.4) Vitamin B12 Level 743 PG/ML (193-986) Valproic Acid (Depakene) Level 50 MCG/ML (50-100) Hepatitis A IgM Antibody Pending Hepatitis B Surface Antigen Pending Hepatitis B Core IgM Antibody Pending Hepatitis C Antibody Pending White Blood Count 8.1 K/UL (4.8-10.8) Red Blood Count 4.64 M/UL (4.20-5.40) Hemoglobin 13.9 G/DL (12.0-16.0) Hematocrit 39.5 % (37.0-47.0) Mean Corpuscular Volume 85 FL (80-99) Mean Corpuscular Hemoglobin 29.9 PG (27.0-31.0) Mean Corpuscular Hemoglobin Concent 35.1 G/DL (32.0-36.0) Red Cell Distribution Width 12.6 % (11.6-14.8) Platelet Count 224 K/UL (150-450) Mean Platelet Volume 5.9 FL (6.5-10.1) L Neutrophils (%) (Auto) % (45.0-75.0) Lymphocytes (%) (Auto) % (20.0-45.0) Monocytes (%) (Auto) % (1.0-10.0) Eosinophils (%) (Auto) % (0.0-3.0) Basophils (%) (Auto) % (0.0-2.0) Differential Total Cells Counted 100 Neutrophils % (Manual) 18 % (45-75) L Lymphocytes % (Manual) 73 % (20-45) H Monocytes % (Manual) 8 % (1-10) Eosinophils % (Manual) 1 % (0-3) Basophils % (Manual) 0 % (0-2) Band Neutrophils 0 % (0-8) Platelet Estimate Adequate Platelet Morphology Normal Red Blood Cell Morphology Normal Sodium Level 141 MMOL/L (136-145) Potassium Level 3.5 MMOL/L (3.5-5.1) Chloride Level 108 MMOL/L (98-107) H Carbon Dioxide Level 23 MMOL/L (21-32) Anion Gap 10 mmol/L (5-15) Blood Urea Nitrogen 2 mg/dL (7-18) L Creatinine 0.7 MG/DL (0.55-1.30) Estimat Glomerular Filtration Rate > 60 mL/min (>60) Glucose Level 103 MG/DL (74-106) Calcium Level 8.1 MG/DL (8.5-10.1) L Phosphorus Level 3.2 MG/DL (2.5-4.9) Magnesium Level 1.7 MG/DL (1.8-2.4) L Globulin 3.6 g/dL Albumin/Globulin Ratio 0.8 (1.0-2.7) L General: well developed, well nourished, no acute distress Head: normocophalic, atraumatic, other - old craniotomy Neck: no rigidity EENT: benign Neurologic Exam Mental Status: oriented x4, normal cognition, other - drowsy Speech: normal speech, no dysarthia Language: normal language, no aphasia Cranial Nerve II: fundus normal, visual jackman, no papilledema Cranial Nerves III, IV, : PERRLA, EOMI, pupils Cranial Nerve V: normal facial sensations, temporales function normal, masseters function normal, pterygoids function normal Cranial Nerve VII: no facial asymmetry, normal facial expressions Cranial Nerve VIII: normal hearing, no nystagmus Cranial Nerve IX: normal palate elevation, gag response Cranial Nerve X: no voice hoarseness Cranial Nerve XI: SCM symmetric, trapezii function normal Cranial Nerve XII: tongue midline, no tongue atrophy/fasciculations Motor System: normal muscle tone, strength 5/5, no involuntary movement, no muscle wasting Sensory: normal pinprick, normal light touch, normal position sense, normal graphesthesia Coordination: normal finger to nose bilaterally, normal heel to mcfarland bilaterally, negative Romberg test Deep Tendon Reflexes: 1+ bicep (L), 1+ bicep (R), 1+ tricep (L), 1+ tricep (R) , 1+ brachioradialis (L), 1+ brachioradialis (R), 1+ knee (L), 1+ knee (R), 1+ ankle (L), 1+ ankle (R) Reflexes: flexor plantar (L), flexor plantar (R) Stance: normal Gait: stable, normal regular, heel + toe gait Impression/Recommendations Problems: (1) Epileptic seizure, generalized (2) Heroin abuse (3) Non-compliance (4) Depressed affect (5) Neuropathic pain Status: unchanged Recommendations #[id number] depakote 500mg bid level pend EEG ROSALINA RAYGOZA Jan 15, 2018 11:43
[2018-01-15 12:00] VITALS: BP 117/67
[2018-01-15] MEDS ORDERED: Magnesium Oxide 400mg tab ORAL SCH (12:00)
[2018-01-15] MEDS: Azithromycin 500 MG in D5W 275 ML IV SCH (14:06)
--- NOTE | 2018-01-15 15:03 | Pulmonology Progress Note ---
Assessment/Plan Problems: (1) Sepsis (2) IVDU (intravenous drug user) (3) Fever (4) Seizure disorder Assessment/Plan imrpoving hiv negative continue abx med/surg id following Subjective ROS Limited/Unobtainable: No Constitutional: Reports: no symptoms HEENT: Repors: no symptoms Respiratory: Reports: no symptoms Allergies: Coded Allergies: KETOROLAC (Verified Allergy, Unknown, 11/25/16) PHENYTOIN (Unverified Allergy, Unknown, 08/13/16) TRAMADOL (Verified Allergy, Unknown, 11/25/16) Objective Last 24 Hour Vital Signs Date Time Temp Pulse Resp B/P (MAP) Pulse Ox O2 Delivery O2 Flow Rate FiO2 01/15/18 12:28 109 01/15/18 12:00 97.0 112 18 117/67 97 Room Air 97.0 01/15/18 08:00 97.5 114 20 110/72 97 Room Air 97.5 01/15/18 08:00 106 01/15/18 04:00 110 01/15/18 04:00 97.0 106 22 116/78 97 Room Air 97.0 01/15/18 00:00 97.9 119 22 116/87 99 Room Air 97.9 01/15/18 00:00 120 01/14/18 20:00 98.4 99 20 115/73 94 Room Air 98.4 01/14/18 20:00 112 01/14/18 16:00 98.1 120 18 122/77 99 Room Air 98.1 01/14/18 16:00 122 Intake and Output 01/14/18 01/15/18 19:00 07:00 Intake Total 1015 ml Balance 1015 ml Intake Oral 340 ml IV Total 675 ml # Voids 5 1 General Appearance: WD/WN HEENT: normocephalic Respiratory/Chest: chest wall non-tender, lungs clear Breasts: no masses Cardiovascular: normal peripheral pulses, normal rate Abdomen: normal bowel sounds Genitourinary: normal external genitalia Skin: no rash 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 Laboratory Tests 01/15/18 07:40: White Blood Count 8.1, Red Blood Count 4.64, Hemoglobin 13.9, Hematocrit 39.5, Mean Corpuscular Volume 85, Mean Corpuscular Hemoglobin 29.9, Mean Corpuscular Hemoglobin Concent 35.1, Red Cell Distribution Width 12.6, Platelet Count 224, Mean Platelet Volume 5.9L, Neutrophils (%) (Auto) , Lymphocytes (%) (Auto) , Monocytes (%) (Auto) , Eosinophils (%) (Auto) , Basophils (%) (Auto) , Differential Total Cells Counted 100, Neutrophils % (Manual) 18L, Lymphocytes % (Manual) 73H, Monocytes % (Manual) 8, Eosinophils % (Manual) 1, Basophils % ( Manual) 0, Band Neutrophils 0, Platelet Estimate Adequate, Platelet Morphology Normal, Red Blood Cell Morphology Normal, Sodium Level 141, Potassium Level 3.5 , Chloride Level 108H, Carbon Dioxide Level 23, Anion Gap 10, Blood Urea Nitrogen 2L, Creatinine 0.7, Estimat Glomerular Filtration Rate > 60, Glucose Level 103, Calcium Level 8.1L, Phosphorus Level 3.2, Magnesium Level 1.7L, Total Bilirubin 0.2, Aspartate Amino Transf (AST/SGOT) 32, Alanine Aminotransferase (ALT/SGPT) 53, Alkaline Phosphatase 95, Total Protein 6.4, Albumin 2.8L, Globulin 3.6, Albumin/Globulin Ratio 0.8L Current Medications Medications (Trade) Dose Ordered Sig/Gustavo Route PRN Reason Start Time Stop Time Status Last Admin Dose Admin Acetaminophen (Tylenol) 650 mg Q6H PRN ORAL Mild Pain/Temp > 100.5 01/14/18 02:45 02/13/18 02:44 01/14/18 05:07 Acetaminophen/ Hydrocodone Bitart ([place] 5/325) 1 tab Q6H PRN ORAL For Pain 01/14/18 02:45 01/21/18 02:44 Azithromycin 500 mg/Dextrose 275 ml @ 275 mls/hr Q24HRS IV 01/14/18 15:00 01/20/18 15:59 01/15/18 14:06 Ceftriaxone Sodium 1 gm/ Sodium Chloride 55 ml @ 110 mls/hr Q24H IVPB 01/14/18 09:00 01/21/18 08:59 01/15/18 08:57 Dextrose/ Electrolytes 1,000 ml @ 100 mls/hr Q10H IV 01/14/18 05:00 02/13/18 04:59 01/15/18 01:34 Divalproex Sodium (Depakote) 500 mg EVERY 12 HOURS ORAL 01/14/18 21:00 02/13/18 20:59 01/15/18 08:58 Gabapentin (Neurontin) 600 mg THREE TIMES A DAY ORAL 01/14/18 14:00 02/13/18 13:59 01/15/18 13:47 Lorazepam (Ativan 2mg/ml 1ml) 1 mg Q2H PRN IV For Seizures 01/14/18 20:45 01/21/18 20:44 Lorazepam (Ativan) 1 mg Q4H PRN ORAL For Anxiety 01/14/18 02:45 01/21/18 02:44 Magnesium Oxide (Mag-Ox 400mg) 400 mg DAILY ORAL 01/15/18 12:00 02/14/18 11:59 01/15/18 13:48 Ondansetron HCl (Zofran) 4 mg Q6H PRN IVP Nausea & Vomiting 01/14/18 02:45 02/13/18 02:44 Thiamine HCl (Vitamin B1) 100 mg DAILY ORAL 01/14/18 14:00 02/13/18 13:59 01/15/18 08:57 CURTIS F[place]AIN Jan 15, 2018 15:03
--- NOTE | 2018-01-15 15:33 | Infectious Diseases Prog Note ---
Assessment/Plan Assessment/Plan ASSESSMENT: The patient is a 27-year-old female with: Fever, SP Rule out influenza ? urinary tract infection Pneumonia/bronchitis Rule out bacteremia Chronic seizure disorder exacerbation due to noncompliance. PLAN: continue the patient on Rocephin and Zithromax d# 2 / 5 Monitor CBC Monitor BMP. Monitor cultures (blood, urine). Influenza screening test. Monitor chest x-ray. Subjective Allergies: Coded Allergies: KETOROLAC (Verified Allergy, Unknown, 11/25/16) PHENYTOIN (Unverified Allergy, Unknown, 08/13/16) TRAMADOL (Verified Allergy, Unknown, 11/25/16) Subjective afebrile Objective Vital Signs Last 24 Hour Vital Signs Date Time Temp Pulse Resp B/P (MAP) Pulse Ox O2 Delivery O2 Flow Rate FiO2 01/15/18 12:28 109 01/15/18 12:00 97.0 112 18 117/67 97 Room Air 97.0 01/15/18 08:00 97.5 114 20 110/72 97 Room Air 97.5 01/15/18 08:00 106 01/15/18 04:00 110 01/15/18 04:00 97.0 106 22 116/78 97 Room Air 97.0 01/15/18 00:00 97.9 119 22 116/87 99 Room Air 97.9 01/15/18 00:00 120 01/14/18 20:00 98.4 99 20 115/73 94 Room Air 98.4 01/14/18 20:00 112 01/14/18 16:00 98.1 120 18 122/77 99 Room Air 98.1 01/14/18 16:00 122 Height (Feet): 5 Height (Inches): 2.00 Weight (Pounds): 147 HEENT: mucous membranes moist Respiratory/Chest: lungs clear Cardiovascular: regularly irregular Abdomen: no scars Laboratory Tests Test 01/15/18 07:40 White Blood Count 8.1 K/UL (4.8-10.8) Red Blood Count 4.64 M/UL (4.20-5.40) Hemoglobin 13.9 G/DL (12.0-16.0) Hematocrit 39.5 % (37.0-47.0) Mean Corpuscular Volume 85 FL (80-99) Mean Corpuscular Hemoglobin 29.9 PG (27.0-31.0) Mean Corpuscular Hemoglobin Concent 35.1 G/DL (32.0-36.0) Red Cell Distribution Width 12.6 % (11.6-14.8) Platelet Count 224 K/UL (150-450) Mean Platelet Volume 5.9 FL (6.5-10.1) L Neutrophils (%) (Auto) % (45.0-75.0) Lymphocytes (%) (Auto) % (20.0-45.0) Monocytes (%) (Auto) % (1.0-10.0) Eosinophils (%) (Auto) % (0.0-3.0) Basophils (%) (Auto) % (0.0-2.0) Differential Total Cells Counted 100 Neutrophils % (Manual) 18 % (45-75) L Lymphocytes % (Manual) 73 % (20-45) H Monocytes % (Manual) 8 % (1-10) Eosinophils % (Manual) 1 % (0-3) Basophils % (Manual) 0 % (0-2) Band Neutrophils 0 % (0-8) Platelet Estimate Adequate Platelet Morphology Normal Red Blood Cell Morphology Normal Sodium Level 141 MMOL/L (136-145) Potassium Level 3.5 MMOL/L (3.5-5.1) Chloride Level 108 MMOL/L (98-107) H Carbon Dioxide Level 23 MMOL/L (21-32) Anion Gap 10 mmol/L (5-15) Blood Urea Nitrogen 2 mg/dL (7-18) L Creatinine 0.7 MG/DL (0.55-1.30) Estimat Glomerular Filtration Rate > 60 mL/min (>60) Glucose Level 103 MG/DL (74-106) Calcium Level 8.1 MG/DL (8.5-10.1) L Phosphorus Level 3.2 MG/DL (2.5-4.9) Magnesium Level 1.7 MG/DL (1.8-2.4) L Total Bilirubin 0.2 MG/DL (0.2-1.0) Aspartate Amino Transf (AST/SGOT) 32 U/L (15-37) Alanine Aminotransferase (ALT/SGPT) 53 U/L (12-78) Alkaline Phosphatase 95 U/L (46-116) Total Protein 6.4 G/DL (6.4-8.2) Albumin 2.8 G/DL (3.4-5.0) L Globulin 3.6 g/dL Albumin/Globulin Ratio 0.8 (1.0-2.7) L Current Medications Medications (Trade) Dose Ordered Sig/Gustavo Route PRN Reason Start Time Stop Time Status Last Admin Dose Admin Acetaminophen (Tylenol) 650 mg Q6H PRN ORAL Mild Pain/Temp > 100.5 01/14/18 02:45 02/13/18 02:44 01/14/18 05:07 Acetaminophen/ Hydrocodone Bitart ([place] 5/325) 1 tab Q6H PRN ORAL For Pain 01/14/18 02:45 01/21/18 02:44 Azithromycin 500 mg/Dextrose 275 ml @ 275 mls/hr Q24HRS IV 01/14/18 15:00 01/20/18 15:59 01/15/18 14:06 Ceftriaxone Sodium 1 gm/ Sodium Chloride 55 ml @ 110 mls/hr Q24H IVPB 01/14/18 09:00 01/21/18 08:59 01/15/18 08:57 Dextrose/ Electrolytes 1,000 ml @ 100 mls/hr Q10H IV 01/14/18 05:00 02/13/18 04:59 01/15/18 01:34 Divalproex Sodium (Depakote) 500 mg EVERY 12 HOURS ORAL 01/14/18 21:00 02/13/18 20:59 01/15/18 08:58 Gabapentin (Neurontin) 600 mg THREE TIMES A DAY ORAL 01/14/18 14:00 02/13/18 13:59 01/15/18 13:47 Lorazepam (Ativan 2mg/ml 1ml) 1 mg Q2H PRN IV For Seizures 01/14/18 20:45 01/21/18 20:44 Lorazepam (Ativan) 1 mg Q4H PRN ORAL For Anxiety 01/14/18 02:45 01/21/18 02:44 Magnesium Oxide (Mag-Ox 400mg) 400 mg DAILY ORAL 01/15/18 12:00 02/14/18 11:59 01/15/18 13:48 Ondansetron HCl (Zofran) 4 mg Q6H PRN IVP Nausea & Vomiting 01/14/18 02:45 02/13/18 02:44 Thiamine HCl (Vitamin B1) 100 mg DAILY ORAL 01/14/18 14:00 02/13/18 13:59 01/15/18 08:57 GARRY GOTTI M.D. Jan 15, 2018 15:33
[2018-01-15 16:00] VITALS: BP 126/77
--- NOTE | 2018-01-15 16:19 | Internal Med Progress Note ---
Subjective Date of Service: Jan 15, 2018 Physician Name [place] New Attending Physician Christoph Garcia MD Current Medications Medications (Trade) Dose Ordered Sig/Gustavo Route PRN Reason Start Time Stop Time Status Last Admin Dose Admin Acetaminophen (Tylenol) 650 mg Q6H PRN ORAL Mild Pain/Temp > 100.5 01/14/18 02:45 02/13/18 02:44 01/14/18 05:07 Acetaminophen/ Hydrocodone Bitart ([place] 5/325) 1 tab Q6H PRN ORAL For Pain 01/14/18 02:45 01/21/18 02:44 Azithromycin 500 mg/Dextrose 275 ml @ 275 mls/hr Q24HRS IV 01/14/18 15:00 01/20/18 15:59 01/15/18 14:06 Ceftriaxone Sodium 1 gm/ Sodium Chloride 55 ml @ 110 mls/hr Q24H IVPB 01/14/18 09:00 01/21/18 08:59 01/15/18 08:57 Dextrose/ Electrolytes 1,000 ml @ 100 mls/hr Q10H IV 01/14/18 05:00 02/13/18 04:59 01/15/18 01:34 Divalproex Sodium (Depakote) 500 mg EVERY 12 HOURS ORAL 01/14/18 21:00 02/13/18 20:59 01/15/18 08:58 Gabapentin (Neurontin) 600 mg THREE TIMES A DAY ORAL 01/14/18 14:00 02/13/18 13:59 01/15/18 13:47 Lorazepam (Ativan 2mg/ml 1ml) 1 mg Q2H PRN IV For Seizures 01/14/18 20:45 01/21/18 20:44 Lorazepam (Ativan) 1 mg Q4H PRN ORAL For Anxiety 01/14/18 02:45 01/21/18 02:44 Magnesium Oxide (Mag-Ox 400mg) 400 mg DAILY ORAL 01/15/18 12:00 02/14/18 11:59 01/15/18 13:48 Ondansetron HCl (Zofran) 4 mg Q6H PRN IVP Nausea & Vomiting 01/14/18 02:45 02/13/18 02:44 Thiamine HCl (Vitamin B1) 100 mg DAILY ORAL 01/14/18 14:00 02/13/18 13:59 01/15/18 08:57 Allergies: Coded Allergies: KETOROLAC (Verified Allergy, Unknown, 11/25/16) PHENYTOIN (Unverified Allergy, Unknown, 08/13/16) TRAMADOL (Verified Allergy, Unknown, 11/25/16) ROS Limited/Unobtainable: No Constitutional: Reports: no symptoms HEENT: Reports: no symptoms Cardiovascular: Reports: no symptoms Respiratory: Reports: no symptoms Gastrointestinal/Abdominal: Reports: no symptoms Genitourinary: Reports: no symptoms Neurologic/Psychiatric: Reports: no symptoms Subjective 27 YO F admitted with breakthrough seizure and heroin dependence. Cover for Int Med-Dr Garcia. No new seizure overnight. Await psych eval. Tachycardic Objective Last Vital Signs Date Time Temp Pulse Resp B/P (MAP) Pulse Ox O2 Delivery O2 Flow Rate FiO2 01/15/18 12:28 109 01/15/18 12:00 97.0 18 117/67 97 Room Air 97.0 01/14/18 08:00 General Appearance: WD/WN, no apparent distress, alert EENT: PERRL/EOMI, normal ENT inspection Neck: non-tender, normal alignment, supple Cardiovascular: normal peripheral pulses, regular rhythm, tachycardia Respiratory/Chest: chest wall non-tender, lungs clear, normal breath sounds, no respiratory distress, no accessory muscle use Abdomen: normal bowel sounds, non tender, soft, no organomegaly, no mass Extremities: normal range of motion, non-tender 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, no motor/sensory deficits Skin: normal pigmentation, warm/dry Laboratory Tests Test 01/15/18 07:40 White Blood Count 8.1 K/UL (4.8-10.8) Red Blood Count 4.64 M/UL (4.20-5.40) Hemoglobin 13.9 G/DL (12.0-16.0) Hematocrit 39.5 % (37.0-47.0) Mean Corpuscular Volume 85 FL (80-99) Mean Corpuscular Hemoglobin 29.9 PG (27.0-31.0) Mean Corpuscular Hemoglobin Concent 35.1 G/DL (32.0-36.0) Red Cell Distribution Width 12.6 % (11.6-14.8) Platelet Count 224 K/UL (150-450) Mean Platelet Volume 5.9 FL (6.5-10.1) L Neutrophils (%) (Auto) % (45.0-75.0) Lymphocytes (%) (Auto) % (20.0-45.0) Monocytes (%) (Auto) % (1.0-10.0) Eosinophils (%) (Auto) % (0.0-3.0) Basophils (%) (Auto) % (0.0-2.0) Differential Total Cells Counted 100 Neutrophils % (Manual) 18 % (45-75) L Lymphocytes % (Manual) 73 % (20-45) H Monocytes % (Manual) 8 % (1-10) Eosinophils % (Manual) 1 % (0-3) Basophils % (Manual) 0 % (0-2) Band Neutrophils 0 % (0-8) Platelet Estimate Adequate Platelet Morphology Normal Red Blood Cell Morphology Normal Sodium Level 141 MMOL/L (136-145) Potassium Level 3.5 MMOL/L (3.5-5.1) Chloride Level 108 MMOL/L (98-107) H Carbon Dioxide Level 23 MMOL/L (21-32) Anion Gap 10 mmol/L (5-15) Blood Urea Nitrogen 2 mg/dL (7-18) L Creatinine 0.7 MG/DL (0.55-1.30) Estimat Glomerular Filtration Rate > 60 mL/min (>60) Glucose Level 103 MG/DL (74-106) Calcium Level 8.1 MG/DL (8.5-10.1) L Phosphorus Level 3.2 MG/DL (2.5-4.9) Magnesium Level 1.7 MG/DL (1.8-2.4) L Total Bilirubin 0.2 MG/DL (0.2-1.0) Aspartate Amino Transf (AST/SGOT) 32 U/L (15-37) Alanine Aminotransferase (ALT/SGPT) 53 U/L (12-78) Alkaline Phosphatase 95 U/L (46-116) Total Protein 6.4 G/DL (6.4-8.2) Albumin 2.8 G/DL (3.4-5.0) L Globulin 3.6 g/dL Albumin/Globulin Ratio 0.8 (1.0-2.7) L Intake and Output 01/14/18 01/15/18 19:00 07:00 Intake Total 1015 ml Balance 1015 ml Intake Oral 340 ml IV Total 675 ml # Voids 5 1 Assessment/Plan Problem List: (1) Nausea & vomiting (2) Opiate dependence, continuous (3) Opiate withdrawal Assessment & Plan: Await psych consult. Continue PRN ativan (4) Fever Assessment & Plan: See ID note. Continue azithro and rocephin (5) Seizure disorder Assessment & Plan: Continue depakote and neurontin. See neruolgoy note. (6) Heroin abuse Status: not improved LONDON NEW Jan 15, 2018 16:19
[2018-01-15] MEDS ORDERED: Methocarbamol 500mg tab ORAL PRN (16:30)
[2018-01-15 20:00] VITALS: BP 124/80
[2018-01-15] MEDS: LORazepam 1mg tab ORAL PRN (22:34)
[2018-01-15] MEDS ORDERED: LORazepam Inj 2mg/ml 1ml IV PRN (22:45)
--- NOTE | 2018-01-15 23:15 | Progress Note ---
DATE: 01/15/2018 SUBJECTIVE: The patient is asleep, arousable, and complaining of depressed mood. No energy. Poor insight and judgment into her mental conditions. The patient is in bed asleep. She has depressed mood, anhedonia, worthlessness, hopelessness, and decreased energy. The patient has poor insight and judgment into her substance use disorder. Poor insight. No suicidal or homicidal ideation. MENTAL STATUS EXAMINATION: The patient is alert and oriented times self, place, and situation she is in. Mood is depressed. Affect is constricted. Congruent mood. Thought process is concrete. Thought content, no suicidal or homicidal ideations. ASSESSMENT: 1. Depression. 2. Anxiety. PLAN: 1. We will continue the current medications. 2. Provide the patient with supportive therapy and reality orientation. Radha Cano M.D. DR: Mahesh JOB#: [id number] CC:
[2018-01-16] MEDS ORDERED: Methocarbamol 500mg tab ORAL PRN
[2018-01-16 02:00] VITALS: BP 116/64
[2018-01-16] MEDS ORDERED: Norco 5mg/325mg tab ORAL PRN (02:45)
[2018-01-16] MEDS: D5 1/2NS w/KCl 20mEq 1,000 ML IV SCH ×2 (07:00→17:00)
--- NOTE | 2018-01-16 08:40 | Pulmonology Progress Note ---
Assessment/Plan Assessment/Plan ASSESSMENT possible sepsis with fevers IVDU/heroine toxic metabolic encephalopathy acute bronchitis possible PNA probably UTI chronic seizure disorder exacerbation 2 to noncompliance hepatitis C hx of L craniotomy posttraumatic LUE and LLE neuropathic pain depression and anxiety PLAN OF CARE MS floor IVF empiric abx ID follows bl cx prel negative CXR negative HIV negative hep panel + hep C; outpt Rx when dc seizure precautions neuro follows fup with neuro recs EEG was done on 01/14 -no sx activity but revealed excessive diffused slowing consistent with encephalopathy. CT head no acute IC pathology, + hx of L craniotomy seizure precautions, on Depakote ( level therapeutic) and Ativan prn psych follows, psych medications regimen optimized by psychiatrist case discussed and evaluated by supervising physician Subjective Allergies: Coded Allergies: KETOROLAC (Verified Allergy, Unknown, 11/25/16) PHENYTOIN (Unverified Allergy, Unknown, 08/13/16) TRAMADOL (Verified Allergy, Unknown, 11/25/16) Subjective not cooperative with answering questions Objective Last 24 Hour Vital Signs Date Time Temp Pulse Resp B/P (MAP) Pulse Ox O2 Delivery O2 Flow Rate FiO2 01/15/18 20:00 116 01/15/18 20:00 97.0 114 18 124/80 92 97.0 01/15/18 16:00 98.0 113 18 126/77 97 Room Air 98.0 01/15/18 16:00 113 01/15/18 12:28 109 01/15/18 12:00 97.0 112 18 117/67 97 Room Air 97.0 Intake and Output 01/15/18 01/16/18 19:00 07:00 Intake Total 760 ml 250 ml Balance 760 ml 250 ml Intake Oral 760 ml 250 ml # Voids 1 2 General Appearance: no acute distress HEENT: anicteric, mucous membranes moist Respiratory/Chest: lungs clear Cardiovascular: normal rate, regular rhythm Abdomen: normal bowel sounds, soft, non tender Extremities: no edema Neurologic/Psychiatric: no motor/sensory deficits, alert, responsive Musculoskeletal: normal muscle bulk Current Medications Medications (Trade) Dose Ordered Sig/Gustavo Route PRN Reason Start Time Stop Time Status Last Admin Dose Admin Acetaminophen (Tylenol) 650 mg Q6H PRN ORAL Mild Pain/Temp > 100.5 01/16/18 02:45 02/13/18 02:44 Acetaminophen/ Hydrocodone Bitart ([place] 5/325) 1 tab Q6H PRN ORAL For Pain 01/16/18 02:45 01/21/18 02:44 Azithromycin 500 mg/Dextrose 275 ml @ 275 mls/hr Q24HRS IV 01/16/18 15:00 01/20/18 15:01 Ceftriaxone Sodium 1 gm/ Sodium Chloride 55 ml @ 110 mls/hr Q24H IVPB 01/16/18 09:00 01/21/18 08:59 Dextrose/ Electrolytes 1,000 ml @ 100 mls/hr Q10H IV 01/15/18 21:00 02/13/18 04:59 01/15/18 21:00 Divalproex Sodium (Depakote) 500 mg EVERY 12 HOURS ORAL 01/15/18 21:00 02/13/18 20:59 01/15/18 22:34 Gabapentin (Neurontin) 600 mg THREE TIMES A DAY ORAL 01/16/18 09:00 02/13/18 13:59 Lorazepam (Ativan 2mg/ml 1ml) 1 mg Q2H PRN IV For Seizures 01/15/18 22:45 01/21/18 20:44 Lorazepam (Ativan) 1 mg Q4H PRN ORAL For Anxiety 01/15/18 22:45 01/21/18 02:44 01/15/18 22:34 Magnesium Oxide (Mag-Ox 400mg) 400 mg DAILY ORAL 01/16/18 09:00 02/14/18 11:59 Methocarbamol (Robaxin) 1,000 mg EVERY 6 HOURS PRN ORAL Muscle Spasm 01/16/18 00:00 02/14/18 16:29 Ondansetron HCl (Zofran) 4 mg Q6H PRN IVP Nausea & Vomiting 01/16/18 02:45 02/13/18 02:44 Thiamine HCl (Vitamin B1) 100 mg DAILY ORAL 01/16/18 09:00 02/13/18 13:59 Samaria Cobb NP ([place]tein) Jan 16, 2018 08:40
[2018-01-16] MEDS: Depakote 500mg tab ORAL SCH ×2 (09:00→21:06)
[2018-01-16] MEDS: cefTRIAXone 1 GM in NS 55 ML IVPB SCH (09:00)
[2018-01-16] MEDS: Thiamine 100mg tab ORAL SCH (09:00)
[2018-01-16] MEDS: Magnesium Oxide 400mg tab ORAL SCH (09:00)
--- NOTE | 2018-01-16 10:45 | Neurology Progress Note ---
Interim History Interim History ROS Limited/Unobtainable: No Complaints: refused to talk, admitted being angry. Events: no sz noted, noncommunicative now with sitter Objective Physical Exam Last Vital Signs Date Time Temp Pulse Resp B/P (MAP) Pulse Ox O2 Delivery O2 Flow Rate FiO2 01/15/18 20:00 116 01/15/18 20:00 97.0 18 124/80 92 97.0 01/15/18 16:00 Room Air 01/14/18 08:00 General: well developed, well nourished, no acute distress, other - in bed, covered with blanket Head: normocophalic, atraumatic, other - old craniotomy Neck: no rigidity EENT: benign Neurologic Exam Mental Status: oriented x4, normal cognition, other - arousable angry refused food exam Speech: normal speech, no dysarthia Language: normal language, no aphasia Cranial Nerve II: fundus normal, visual jackman, no papilledema Cranial Nerves III, IV, : PERRLA, EOMI, pupils Cranial Nerve V: normal facial sensations, temporales function normal, masseters function normal, pterygoids function normal Cranial Nerve VII: no facial asymmetry, normal facial expressions Cranial Nerve VIII: normal hearing, no nystagmus Cranial Nerve IX: normal palate elevation, gag response Cranial Nerve X: no voice hoarseness Cranial Nerve XI: SCM symmetric, trapezii function normal Cranial Nerve XII: tongue midline, no tongue atrophy/fasciculations Motor System: normal muscle tone, strength 5/5, no involuntary movement, no muscle wasting Sensory: normal pinprick, normal light touch, normal position sense, normal graphesthesia Coordination: normal finger to nose bilaterally, normal heel to mcfarland bilaterally, negative Romberg test Deep Tendon Reflexes: 1+ bicep (L), 1+ bicep (R), 1+ tricep (L), 1+ tricep (R) , 1+ brachioradialis (L), 1+ brachioradialis (R), 1+ knee (L), 1+ knee (R), 1+ ankle (L), 1+ ankle (R) Reflexes: flexor plantar (L), flexor plantar (R) Stance: normal Gait: stable, normal regular, heel + toe gait Impression/Recommendations Problems: (1) Epileptic seizure, generalized (2) Heroin abuse (3) Non-compliance (4) Depressed affect (5) Hepatitis C antibody positive in blood Status: not improved Recommendations #[id number] depakote 500mg bid level pend EEG no sx noted psych ROSALINA Hogan Jan 16, 2018 10:44
[2018-01-16 12:00] VITALS: BP 130/62
[2018-01-16] MEDS: LORazepam 1mg tab ORAL PRN ×2 (13:13→21:06)
[2018-01-16] MEDS ORDERED: Azithromycin 500 MG in D5W 275 ML IV SCH (15:00)
--- NOTE | 2018-01-16 15:29 | Internal Med Progress Note ---
Subjective Date of Service: Jan 16, 2018 Physician Name [place] New Attending Physician Christoph Garcia MD Current Medications Medications (Trade) Dose Ordered Sig/Gustavo Route PRN Reason Start Time Stop Time Status Last Admin Dose Admin Acetaminophen (Tylenol) 650 mg Q6H PRN ORAL Mild Pain/Temp > 100.5 01/16/18 02:45 02/13/18 02:44 Acetaminophen/ Hydrocodone Bitart ([place] 5/325) 1 tab Q6H PRN ORAL For Pain 01/16/18 02:45 01/21/18 02:44 Azithromycin 500 mg/Dextrose 275 ml @ 275 mls/hr Q24HRS IV 01/16/18 15:00 01/20/18 15:01 Ceftriaxone Sodium 1 gm/ Sodium Chloride 55 ml @ 110 mls/hr Q24H IVPB 01/16/18 09:00 01/21/18 08:59 Dextrose/ Electrolytes 1,000 ml @ 100 mls/hr Q10H IV 01/15/18 21:00 02/13/18 04:59 01/15/18 21:00 Divalproex Sodium (Depakote) 500 mg EVERY 12 HOURS ORAL 01/15/18 21:00 02/13/18 20:59 01/15/18 22:34 Gabapentin (Neurontin) 600 mg THREE TIMES A DAY ORAL 01/16/18 09:00 02/13/18 13:59 01/16/18 13:08 Lorazepam (Ativan 2mg/ml 1ml) 1 mg Q2H PRN IV For Seizures 01/15/18 22:45 01/21/18 20:44 Lorazepam (Ativan) 1 mg Q4H PRN ORAL For Anxiety 01/15/18 22:45 01/21/18 02:44 01/16/18 13:13 Magnesium Oxide (Mag-Ox 400mg) 400 mg DAILY ORAL 01/16/18 09:00 02/14/18 11:59 Methocarbamol (Robaxin) 1,000 mg EVERY 6 HOURS PRN ORAL Muscle Spasm 01/16/18 00:00 02/14/18 16:29 Ondansetron HCl (Zofran) 4 mg Q6H PRN IVP Nausea & Vomiting 01/16/18 02:45 02/13/18 02:44 Quetiapine Fumarate (SEROquel) 100 mg Q12HR ORAL 01/16/18 11:00 02/15/18 10:59 01/16/18 13:08 Thiamine HCl (Vitamin B1) 100 mg DAILY ORAL 01/16/18 09:00 02/13/18 13:59 Allergies: Coded Allergies: KETOROLAC (Verified Allergy, Unknown, 11/25/16) PHENYTOIN (Unverified Allergy, Unknown, 08/13/16) TRAMADOL (Verified Allergy, Unknown, 11/25/16) ROS Limited/Unobtainable: No Constitutional: Reports: no symptoms HEENT: Reports: no symptoms Cardiovascular: Reports: no symptoms Respiratory: Reports: no symptoms Gastrointestinal/Abdominal: Reports: no symptoms Genitourinary: Reports: no symptoms Neurologic/Psychiatric: Reports: no symptoms Subjective 27 YO F admitted with breakthrough seizure and heroin dependence. Cover for Int Med-Dr Garcia. No new seizure overnight. Tachycardia improved. Objective Last Vital Signs Date Time Temp Pulse Resp B/P (MAP) Pulse Ox O2 Delivery O2 Flow Rate FiO2 01/16/18 12:00 98.1 97 18 130/62 97 98.1 01/15/18 16:00 Room Air 01/14/18 08:00 Microbiology Date/Time Source Procedure Growth Status 01/15/18 07:40 Blood Blood Culture - Preliminary NO GROWTH AFTER 24 HOURS Resulted Intake and Output 01/15/18 01/16/18 19:00 07:00 Intake Total 760 ml 650 ml Balance 760 ml 650 ml Intake Oral 760 ml 250 ml IV Total 400 ml # Voids 1 2 Objective General Appearance: WD/WN, no apparent distress, alert EENT: PERRL/EOMI, normal ENT inspection Neck: non-tender, normal alignment, supple Cardiovascular: normal peripheral pulses, regular rhythm, tachycardia Respiratory/Chest: chest wall non-tender, lungs clear, normal breath sounds, no respiratory distress, no accessory muscle use Abdomen: normal bowel sounds, non tender, soft, no organomegaly, no mass Extremities: normal range of motion, non-tender 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 Continue PRN ativan (4) Fever Assessment & Plan: See ID note. Continue azithro and rocephin (5) Seizure disorder Assessment & Plan: Continue depakote and neurontin. See mino note. (6) Heroin abuse Assessment/Plan Discharge planning MANDI NEW Jan 16, 2018 15:29
[2018-01-16 16:00] VITALS: BP 125/64
--- NOTE | 2018-01-16 18:45 | Electroencephalogram ---
DATE OF PROCEDURE: 01/14/2018 ELECTROENCEPHALOGRAPHY REPORT REFERRING PHYSICIAN: Christoph Garcia M.D. HISTORY: A 27-year-old female with history of chronic seizure disorder, who had a defect and IV drug abuse. Current treatment include Neurontin and Depakote. TECHNIQUE: EEG was done using 18 electrodes placed scalp to scalp, scalp to ear montages according to 10/[employer] System. Apparently, the patient presented with exacerbation of seizures and power technician reported the patient having a seizure episode 10 minutes prior to the test, second seizure episode occurred while electrodes were applied. During the recording, the patient was awake, drowsy, and poorly cooperative. Throughout the recording, there was a mixture of somewhat irregular 7 to 8 cycles per second, low to medium voltage activities intermittently mixed with generalized slowing 6 to 7 cycles bilaterally. The patient described as intermittently drowsy, significant amount of eye movement artifacts were noted. There was no spike or wave activities and no significant [id number] amplitude asymmetry. IMPRESSION: Abnormal EEG in presence of excessive diffuse slowing. COMMENT: Above abnormality is a nonspecific finding, may indicate postictal state, toxic metabolic derangement, or diffuse structural abnormalities. Clinical correlation is necessary. Lam Allen M.D. DR: Jasmine JOB#: [id number] CC:
[2018-01-16 20:00] VITALS: BP 116/64
[2018-01-17] VITALS: BP 115/59
[2018-01-17] MEDS: D5 1/2NS w/KCl 20mEq 1,000 ML IV SCH ×2 (03:00→13:00)
[2018-01-17 04:00] VITALS: BP 129/67
[2018-01-17] MEDS: Depakote 500mg tab ORAL SCH (09:00)
[2018-01-17] MEDS: Magnesium Oxide 400mg tab ORAL SCH (09:00)
[2018-01-17] MEDS: Thiamine 100mg tab ORAL SCH (09:00)
[2018-01-17] MEDS: cefTRIAXone 1 GM in NS 55 ML IVPB SCH (09:00)
--- NOTE | 2018-01-17 09:32 | Pulmonology Progress Note ---
Assessment/Plan Assessment/Plan ASSESSMENT possible sepsis fevers IVDU/heroine toxic metabolic encephalopathy acute bronchitis possible PNA probably UTI chronic seizure disorder exacerbation 2 to noncompliance hepatitis C hx of L craniotomy posttraumatic LUE and LLE neuropathic pain depression and anxiety PLAN OF CARE MS floor IVF empiric abx ID follows bl cx prel negative CXR negative HIV negative hep panel + hep C; outpt Rx when dc seizure precautions neuro follows EEG was done on 01/14 -no sx activity but revealed excessive diffused slowing consistent with encephalopathy. on thiamine fup with neuro recs CT head no acute IC pathology, + hx of L craniotomy on Depakote ( level ther) and Ativan prn on Gabapetin psych follows, psych medications regimen optimized by psychiatrist financial aid counselor on abstinence from street drugs SW fo assist with dc planning case discussed and evaluated by supervising physician Subjective Allergies: Coded Allergies: KETOROLAC (Verified Allergy, Unknown, 11/25/16) PHENYTOIN (Unverified Allergy, Unknown, 08/13/16) TRAMADOL (Verified Allergy, Unknown, 11/25/16) Subjective not cooperative with answering questions reports intermittent body pain no CP no SOB no seizure acidity Objective Last 24 Hour Vital Signs Date Time Temp Pulse Resp B/P (MAP) Pulse Ox O2 Delivery O2 Flow Rate FiO2 01/17/18 04:00 97.3 78 20 129/67 98 97.3 01/17/18 00:00 97.9 105 20 115/59 97 97.9 01/16/18 20:00 97.7 84 20 116/64 98 97.7 01/16/18 16:00 97.6 79 18 125/64 97 97.6 01/16/18 12:00 98.1 97 18 130/62 97 98.1 Intake and Output 01/16/18 01/17/18 19:00 07:00 Intake Total 450 ml Balance 450 ml Intake Oral 450 ml # Voids 3 1 Microbiology Date/Time Source Procedure Growth Status 01/15/18 07:40 Blood Blood Culture - Preliminary NO GROWTH AFTER 24 HOURS Resulted Current Medications Medications (Trade) Dose Ordered Sig/Gustavo Route PRN Reason Start Time Stop Time Status Last Admin Dose Admin Acetaminophen (Tylenol) 650 mg Q6H PRN ORAL Mild Pain/Temp > 100.5 01/16/18 02:45 02/13/18 02:44 Acetaminophen/ Hydrocodone Bitart ([place] 5/325) 1 tab Q6H PRN ORAL For Pain 01/16/18 02:45 01/21/18 02:44 Azithromycin 500 mg/Dextrose 275 ml @ 275 mls/hr Q24HRS IV 01/16/18 15:00 01/20/18 15:01 Ceftriaxone Sodium 1 gm/ Sodium Chloride 55 ml @ 110 mls/hr Q24H IVPB 01/16/18 09:00 01/21/18 08:59 Dextrose/ Electrolytes 1,000 ml @ 100 mls/hr Q10H IV 01/15/18 21:00 02/13/18 04:59 01/15/18 21:00 Divalproex Sodium (Depakote) 500 mg EVERY 12 HOURS ORAL 01/15/18 21:00 02/13/18 20:59 01/16/18 21:06 Gabapentin (Neurontin) 600 mg THREE TIMES A DAY ORAL 01/16/18 09:00 02/13/18 13:59 01/16/18 18:00 Lorazepam (Ativan 2mg/ml 1ml) 1 mg Q2H PRN IV For Seizures 01/15/18 22:45 01/21/18 20:44 Lorazepam (Ativan) 1 mg Q4H PRN ORAL For Anxiety 01/15/18 22:45 01/21/18 02:44 01/16/18 13:13 Magnesium Oxide (Mag-Ox 400mg) 400 mg DAILY ORAL 01/16/18 09:00 02/14/18 11:59 Methocarbamol (Robaxin) 1,000 mg EVERY 6 HOURS PRN ORAL Muscle Spasm 01/16/18 00:00 02/14/18 16:29 Ondansetron HCl (Zofran) 4 mg Q6H PRN IVP Nausea & Vomiting 01/16/18 02:45 02/13/18 02:44 Quetiapine Fumarate (SEROquel) 100 mg Q12HR ORAL 01/16/18 11:00 02/15/18 10:59 01/16/18 21:00 Thiamine HCl (Vitamin B1) 100 mg DAILY ORAL 01/16/18 09:00 02/13/18 13:59 Samaria Cobb NP ([facility]) Jan 17, 2018 09:31
--- NOTE | 2018-01-17 12:00 | Infectious Diseases Prog Note ---
Assessment/Plan Assessment/Plan ASSESSMENT: The patient is a 27-year-old female with: Fever, SP Rule out influenza ? urinary tract infection Pneumonia/bronchitis Rule out bacteremia mild transaminitis Hep A/ B : neg history of IV drug abuse (heroin). Chronic seizure disorder exacerbation due to noncompliance PLAN: continue the patient on Rocephin and Zithromax d# 4 / 5 Monitor CBC Monitor BMP. Monitor cultures (blood, urine). Influenza screening test. Monitor chest x-ray. wup and Rx for Hep C and Imm for Hep A/b as out Pt Subjective Allergies: Coded Allergies: KETOROLAC (Verified Allergy, Unknown, 11/25/16) PHENYTOIN (Unverified Allergy, Unknown, 08/13/16) TRAMADOL (Verified Allergy, Unknown, 11/25/16) Subjective afebrile Objective Vital Signs Last 24 Hour Vital Signs Date Time Temp Pulse Resp B/P (MAP) Pulse Ox O2 Delivery O2 Flow Rate FiO2 01/17/18 04:00 97.3 78 20 129/67 98 97.3 01/17/18 00:00 97.9 105 20 115/59 97 97.9 01/16/18 20:00 97.7 84 20 116/64 98 97.7 01/16/18 16:00 97.6 79 18 125/64 97 97.6 01/16/18 12:00 98.1 97 18 130/62 97 98.1 Height (Feet): 5 Height (Inches): 2.00 Weight (Pounds): 147 HEENT: anicteric Respiratory/Chest: no respiratory distress Cardiovascular: regular rhythm Abdomen: no organomegaly Microbiology Date/Time Source Procedure Growth Status 01/15/18 07:40 Blood Blood Culture - Preliminary NO GROWTH AFTER 24 HOURS Resulted Current Medications Medications (Trade) Dose Ordered Sig/Gustavo Route PRN Reason Start Time Stop Time Status Last Admin Dose Admin Acetaminophen (Tylenol) 650 mg Q6H PRN ORAL Mild Pain/Temp > 100.5 01/16/18 02:45 02/13/18 02:44 Acetaminophen/ Hydrocodone Bitart ([place] 5/325) 1 tab Q6H PRN ORAL For Pain 01/16/18 02:45 01/21/18 02:44 Azithromycin 500 mg/Dextrose 275 ml @ 275 mls/hr Q24HRS IV 01/16/18 15:00 01/20/18 15:01 Ceftriaxone Sodium 1 gm/ Sodium Chloride 55 ml @ 110 mls/hr Q24H IVPB 01/16/18 09:00 01/21/18 08:59 Dextrose/ Electrolytes 1,000 ml @ 100 mls/hr Q10H IV 01/15/18 21:00 02/13/18 04:59 01/15/18 21:00 Divalproex Sodium (Depakote) 500 mg EVERY 12 HOURS ORAL 01/15/18 21:00 02/13/18 20:59 01/16/18 21:06 Gabapentin (Neurontin) 600 mg THREE TIMES A DAY ORAL 01/16/18 09:00 02/13/18 13:59 01/16/18 18:00 Lorazepam (Ativan 2mg/ml 1ml) 1 mg Q2H PRN IV For Seizures 01/15/18 22:45 01/21/18 20:44 Lorazepam (Ativan) 1 mg Q4H PRN ORAL For Anxiety 01/15/18 22:45 01/21/18 02:44 01/16/18 13:13 Magnesium Oxide (Mag-Ox 400mg) 400 mg DAILY ORAL 01/16/18 09:00 02/14/18 11:59 Methocarbamol (Robaxin) 1,000 mg EVERY 6 HOURS PRN ORAL Muscle Spasm 01/16/18 00:00 02/14/18 16:29 Ondansetron HCl (Zofran) 4 mg Q6H PRN IVP Nausea & Vomiting 01/16/18 02:45 02/13/18 02:44 Quetiapine Fumarate (SEROquel) 100 mg Q12HR ORAL 01/16/18 11:00 02/15/18 10:59 01/16/18 21:00 Thiamine HCl (Vitamin B1) 100 mg DAILY ORAL 01/16/18 09:00 02/13/18 13:59 GARRY GOTTI M.D. Jan 17, 2018 12:00
[2018-01-17] MEDS ORDERED: Tubing IV Secondary IV ONE (13:29)
--- NOTE | 2018-01-17 14:37 | Internal Med Progress Note ---
Subjective Date of Service: Jan 17, 2018 Physician Name [place] New Attending Physician Christoph Garcia MD Allergies: Coded Allergies: KETOROLAC (Verified Allergy, Unknown, 11/25/16) PHENYTOIN (Unverified Allergy, Unknown, 08/13/16) TRAMADOL (Verified Allergy, Unknown, 11/25/16) ROS Limited/Unobtainable: No Constitutional: Reports: no symptoms HEENT: Reports: no symptoms Cardiovascular: Reports: no symptoms Respiratory: Reports: no symptoms Gastrointestinal/Abdominal: Reports: no symptoms Genitourinary: Reports: no symptoms Neurologic/Psychiatric: Reports: no symptoms Subjective 27 YO F admitted with breakthrough seizure and heroin dependence. Cover for Int Med-Dr Garcia. No new seizure overnight. Patient left against medical advise-see nursing note. Objective Last Vital Signs Date Time Temp Pulse Resp B/P (MAP) Pulse Ox O2 Delivery O2 Flow Rate FiO2 01/17/18 04:00 97.3 78 20 129/67 98 97.3 01/15/18 16:00 Room Air 01/14/18 08:00 Microbiology Date/Time Source Procedure Growth Status 01/15/18 07:40 Blood Blood Culture - Preliminary NO GROWTH AFTER 24 HOURS Resulted Intake and Output 01/16/18 01/17/18 19:00 07:00 Intake Total 450 ml Balance 450 ml Intake Oral 450 ml # Voids 3 1 Objective General Appearance: WD/WN, no apparent distress, alert EENT: PERRL/EOMI, normal ENT inspection Neck: non-tender, normal alignment, supple Cardiovascular: normal peripheral pulses, regular rhythm, tachycardia Respiratory/Chest: chest wall non-tender, lungs clear, normal breath sounds, no respiratory distress, no accessory muscle use Abdomen: normal bowel sounds, non tender, soft, no organomegaly, no mass Extremities: normal range of motion, non-tender Neurologic: care management specialist II-XII grossly normal, no motor/sensory deficits Skin: normal pigmentation, warm/dry Assessment/Plan Problem List: (1) Nausea & vomiting (2) Opiate dependence, continuous (3) Opiate withdrawal Assessment & Plan: See psych consult. Continue PRN ativan (4) Fever Assessment & Plan: See ID note. Continue azithro and rocephin (5) Seizure disorder Assessment & Plan: Continue depakote and neurontin. See neruolgoy note. (6) Heroin abuse Assessment/Plan patient left against medical advise. L[place] NEW Jan 17, 2018 14:37
--- NOTE | 2018-01-18 22:39 | General Progress Note ---
Assessment/Plan Status: progressing Assessment/Plan 1. Depression. 2. Anxiety. PLAN: 1. We will continue the current medications. 2. Provide the patient with supportive therapy and reality orientation. Subjective Date patient seen: Jan 16, 2018 Neurologic/Psychiatric: Reports: anxiety, depressed, emotional problems Allergies: Coded Allergies: KETOROLAC (Verified Allergy, Unknown, 11/25/16) PHENYTOIN (Unverified Allergy, Unknown, 08/13/16) TRAMADOL (Verified Allergy, Unknown, 11/25/16) Objective Height (Feet): 5 Height (Inches): 2.00 Weight (Pounds): 147 General Appearance: no apparent distress, alert Neurologic: alert, oriented x 3, responsive, depressed affect Radha Cano M.D. Jan 18, 2018 22:39
--- NOTE | 2018-01-18 22:40 | General Progress Note ---
Assessment/Plan Status: stable Assessment/Plan 1. Depression. 2. Anxiety. PLAN: 1. We will continue the current medications. 2. Provide the patient with supportive therapy and reality orientation. Subjective Date patient seen: Jan 17, 2018 Neurologic/Psychiatric: Reports: anxiety, depressed, emotional problems Allergies: Coded Allergies: KETOROLAC (Verified Allergy, Unknown, 11/25/16) PHENYTOIN (Unverified Allergy, Unknown, 08/13/16) TRAMADOL (Verified Allergy, Unknown, 11/25/16) Objective Height (Feet): 5 Height (Inches): 2.00 Weight (Pounds): 147 Radha Cano M.D. Jan 18, 2018 22:39
--- NOTE | 2018-01-20 10:33 | Discharge Summary ---
Discharge Summary Hospital Course Date of Admission Jan 14, 2018 at 00:46 Date of Discharge Jan 17, 2018 at 13:30 Admitting Diagnosis HPI Ling Perea is a 27 year old female who was admitted on Jan 14, 2018 at 00: 46 for Fever, Sepsis Hospital Course dc summary #[id number] Discharge Discharge Disposition Patient signed AMA Discharge Diagnoses: Reza ([facility]),Samaria CASTRO Jan 20, 2018 10:33
--- NOTE | 2018-01-21 05:00 | Discharge Summary 2 SIG ---
DATE OF ADMISSION: 01/14/2018 DATE OF DISCHARGE: 01/17/2018 REASON FOR ADMISSION: 27 years old female with past medical history of severe head trauma with loss of consciousness and skull fracture, for which she undergone craniotomy, and subsequently developed generalized seizure disorder, heroin use, hepatitis C. The patient was on the Depakote, but in the last few days, she ran out of her medication and relapsed on IV heroin. The patient was initially evaluated in [facility] and found to have fever 102.8. No leucocytosis, low Depakote level, UA with evidence of UTI. Patient was started on antibiotics, given Depakote and [place] [facility] [place] The patient also complained of cough and congestion and fever in the last few days. The patient admitted with diagnoses of chronic seizure disorder exacerbation secondary to noncompliance, heroin abuse, fevers, possible sepsis , cough, UTI, opiate dependency. HOSPITAL COURSE: The patient admitted. Neurology consult was requested. CT of the head revealed no acute intracranial pathology, but demonstrated left posterior parietal craniotomy.Neurologist followed the patient closely. The patient was restarted on Depakote. Blood level was therapeutic. EEG revealed no evidence of seizure activity, but demonstrated excessive diffused slowing consistent with encephalopathy. Patient initially was on IV hydration. Thiamine was added to existing medication regimen. Librium started to avoid withdrawal symptomatology. Neurontin 600 mg t.i.d. was started. Neurologist recommended psychiatric evaluation. Seizure precautions were4 maintained. Depakote was continued along with Ativan as needed for breakthrough seizures. Chest x-ray was negative for any acute cardiopulmonary pathology. ID specialist closely followed. Patient declined to provide urine specimen. Patient was treated empirically with antibiotics. Supplemental oxygen and pulmonary toilet provided as needed. Pulse oximetry was stable on room air. Antitussive provided as needed. Blood culture preliminary negative. Influenza screen test and urine culture were ordered. The patient did not provide any sample. HIV screen was negative. Fevers resolved. Psychiatrist seen and on evaluation of the patient, diagnosed the patient with depression, anxiety, and optimized psychiatric medication regimen. Hepatitis panel showed evidence of hepatitis C infection. The patient was recommended to start outpatient hepatitis C treatment. The patient was on empiric antibiotics. On 01/17/2018, the patient decided to sign against medical advice. The risks and consequences of signing against medical advice were discussed with the patient. The patient verbalized understanding, signed AMA form and left. FINAL DIAGNOSES: 1. Chronic seizure disorder exacerbation, secondary to noncompliance. 2. Long-term IV drug abuse with history of heroin abuse, recent relapse. 3. Possible sepsis with fevers 4. Acute bronchitis, 5. Possible pneumonia 6. Probably UTI 7. Noncompliance. 8. Depression and anxiety. 9. History of posttraumatic neuropathic left upper extremity and left lower extremity pain. 10. Hepatitis C infection. 11. History of left craniotomy 12. Toxic metabolic encephalopathy Christoph Garcia M.D. Samaria BaezGood Samaritan HospitalLoni N.PPayal DR: EDNA JOB#: [id number] CC: [id number]
== END 2018-01-17 13:30 | disposition left against medical advice (07) | DRG 871 ==
LOC: 2E 01-14 00:46 → 4E 01-15 20:51
DX: A41.9 Sepsis, unspecified organism (principal); J18.9 Pneumonia, unspecified organism; G40.919 Epilepsy, unspecified, intractable, without status epilepticus; G62.9 Polyneuropathy, unspecified; F11.23 Opioid dependence with withdrawal; N39.0 Urinary tract infection, site not specified; F41.8 Other specified anxiety disorders; Z88.6 Allergy status to analgesic agent; Z88.8 Allergy status to other drugs, medicaments and biological substances; Z87.820 Personal history of traumatic brain injury; Z91.14 Patient's other noncompliance with medication regimen; B19.20 Unspecified viral hepatitis C without hepatic coma; J20.9 Acute bronchitis, unspecified
CPT/HCPCS: 36415; 70450; 71045; 80048; 80053; 80061; 80076; 80164; 82140; 82607; 83735; 84100; 85007; 85025; 86703; 86705; 86709; 86803; 87040; 87340; 95819